=== PATIENT | male | born 1945 | race Caucasian/White ===

== ENCOUNTER 2021-10-08 12:49 | Inpatient (IN) | payer MEDICARE, OTHER ==
[~2021-10-08] VITALS: Ht 167.6 cm; Wt 86.4 kg
[2021-10-08 14:00] LABS: BASO # 0.1 K/mm3 (0.0-0.2); BASO % 0.6 % (0.0-2.0); EOS # 0.2 K/mm3 (0.0-0.7); EOS % 2.6 % (0.0-4.0); GRAN # 6.1 K/mm3 (1.4-6.5); GRAN % 72.1 % (42.2-75.2); HEMATOCRIT 42.9 % (42.0-52.0); LYMPH # 1.3 K/mm3 (1.2-3.4); LYMPH % 15.8 % (20.0-51.0); MEAN CELL VOLUME 92 fl (80.0-100.0); MEAN CORPUSCULAR HEMOGLOBIN 32 pg (27-31); MEAN CORPUSCULAR HGB CONC 35 g/dl (33.0-37.0); MONO # 0.7 K/mm3 (0.1-0.6); MONO % 8.5 % (1.7-9.3); PLATELET COUNT 187 K/mm3 (130-400); RED BLOOD COUNT 4.66 M/mm3 (4.20-5.60); REDCELL DISTRIBUTION WIDTH-CV 12.4 % (11.5-14.5)
[2021-10-08 14:27] LABS: ALANINE AMINOTRANSFERASE 41 U/L (0-55); ALBUMIN 3.5 gm/dL (3.4-4.8); ALKALINE PHOSPHATASE 52 U/L (40-150); ANION GAP 11 mmol/L (7-16); AST,SGOT 27 U/L (5-34); BILIRUBIN,TOTAL 0.6 mg/dL (0.2-1.2); BLOOD UREA NITROGEN 25 mg/dL (8-26); CALCIUM 9.2 mg/dL (8.4-10.2); CARBON DIOXIDE 25 mmol/L (23-31); CHLORIDE 104 mmol/L (98-107); CREATININE, serum 0.88 mg/dL (0.72-1.25); GLUCOSE 202 mg/dL (70-99); POTASSIUM 4.3 mmol/L (3.5-4.5); SODIUM 140 mmol/L (136-145); TOTAL PROTEIN 6.9 gm/dL (6.2-8.1)
[2021-10-08 14:32] LABS: ALCOHOL(ethanol),MEDICAL < 10 mg/dL (0-10)
[2021-10-08 14:37] LABS: TROPONIN-I < 0.010 ng/mL (0.00-0.033)
[2021-10-08 16:20] LABS: COLLECTION METHOD CLEAN CATCH
[2021-10-08 16:30] LABS: MUCOUS Present (NOT PRESENT); PH 5 (5-8); SQUAMOUS EPITHELIAL None Seen /hpf (0-10); URINE APPEARANCE Clear (CLEAR/HAZY); URINE BACTERIA None Seen /hpf (NONE SEEN); URINE BILIRUBIN Negative (NEGATIVE); URINE BLOOD Negative (NEGATIVE); URINE COLOR Yellow (YELLOW); URINE GLUCOSE 1+ (NEGATIVE); URINE KETONE Negative (NEGATIVE); URINE LEUKOCYTE ESTERASE Negative (NEGATIVE); URINE NITRATE Negative (NEGATIVE); URINE PROTEIN(semi-quant) Negative (NEGATIVE); URINE RBC 0-2 /hpf (0-2); URINE UROBILINOGEN Negative (NEGATIVE)
[2021-10-08] MEDS ORDERED: ACIDOPHILIS (16:37)
[2021-10-08] MEDS ORDERED: BALANCE B-501 TA1 PO (16:38)
[2021-10-08] MEDS ORDERED: DIGEST ADV INT1 EACH (16:38)
[2021-10-08] MEDS ORDERED: ASHWAGANDHA500 MG PO (16:38)
[2021-10-08] MEDS ORDERED: NATURE'S BLEND600 M2 PO (16:39)
[2021-10-08] MEDS ORDERED: [UNRECOGNIZED DRUG - OTHER] (16:40)
[2021-10-08] MEDS ORDERED: NATURE'S BLEND500 M1 PO (16:40)
[2021-10-08] MEDS ORDERED: L-THEANINE200 MG PO (16:41)
[2021-10-08] MEDS ORDERED: MELATONIN5 M1 SL (16:41)
[2021-10-08] MEDS ORDERED: LIPID EMULSION 20% (16:41)
[2021-10-08] MEDS ORDERED: COREG 25MG25 MG/TAB PO (16:42)
[2021-10-08] MEDS ORDERED: ZESTRIL40 MG PO (16:42)
[2021-10-08] MEDS ORDERED: NORVASC 5MG5 MG/TAB PO (16:43)
[2021-10-08] MEDS ORDERED: MEVACOR 20M20 MG/TAB PO (16:44)
[2021-10-08] MEDS ORDERED: THE MEDICINE S200 M2 PO (16:44)
[2021-10-08] MEDS ORDERED: HCTZ 25MG TAB25 MG PO (16:44)
[2021-10-08] MEDS ORDERED: VITAMIN C500 MG PO (16:45)
[2021-10-08] MEDS ORDERED: VITAMIN B-6100 MG (16:45)
[2021-10-08] MEDS ORDERED: CURCUMIN95% (16:46)
[2021-10-08] MEDS ORDERED: SELENIUM200 MC5 (16:46)
[2021-10-08] MEDS ORDERED: FISH OIL 1000MG1 CAP PO (16:49)
[2021-10-08] MEDS ORDERED: PHARMASSURE ZIN50 MG PO (16:50)
[2021-10-08] MEDS ORDERED: VITAMIN D31 MILLION (16:50)
[2021-10-08] MEDS ORDERED: NATURAL E400 IU PO (16:50)
[2021-10-08] MEDS ORDERED: GINGER ROOT EX250 MG PO (16:51)
[2021-10-08] MEDS ORDERED: GINKGO60 MG PO (16:51)
[2021-10-08] MEDS ORDERED: GREEN TEA EXTR250 MG PO (16:51)
[2021-10-08] MEDS ORDERED: GNC L-ARGININE500 MG PO (16:52)
[2021-10-08 20:29] VITALS: BP 158/66; PULSE 59
[2021-10-08] MEDS ORDERED: [UNRECOGNIZED DRUG - OTHER] (20:59)
[2021-10-08] MEDS ORDERED: GARLIC100 MG PO (21:00)
[2021-10-08] MEDS ORDERED: LUTEIN6 MG PO (21:02)
[2021-10-08] MEDS ORDERED: [UNRECOGNIZED DRUG - OTHER] (21:04)
[2021-10-08] MEDS ORDERED: ASTRAGALUS ROOT (21:05)
[2021-10-08] MEDS ORDERED: VITAMIN B COMPLEX (21:06)
[2021-10-08] MEDS ORDERED: Elderberry (21:08)
[2021-10-08] MEDS ORDERED: CITRULLINE (21:09)
[2021-10-08] MEDS ORDERED: Magnesium Glycinate (21:09)
[2021-10-08] MEDS ORDERED: GLUCOSAMINE MSM1 TAB PO (21:11)
--- NOTE | 2021-10-08 23:02 | NUR ---
ADMIT TO FLOOR W ACCOMPANY. PT INITALLY IS UPSET STATES HE HAD NOT ATE ALL DAY AND WAS UPSET HAD TO LEAVE. - INFORMED SHE WOULD BE ALLOWED TO STAY FOR ASSESS TO HELP ME OBTAIN HX, MEDS. SIMPLE SWALLOW BEDSIDE- DID OKAY WITH THICK AND THIN LIQ. ORDERS PERUVIAN AND ASST WITH INFORMATION. MED LIST REC COMPLETE. DR NIETO HAD SEEN PT IN ER AND WROTE ORDERS. NEURO INTACT.ORTHO STAT DONE AND WNL. PT REFUSED TO CHANGE INTO YELLOW GOWN DID PUT ON SKID SOCKS. BED ALARM ON. POC DISCUSSED. NUMBER LEFT.
[2021-10-09 00:53] VITALS: BP 139/61; PULSE 81; TEMP 98.2
[2021-10-09 05:01] VITALS: BP 159/87; PULSE 85; TEMP 98.6
--- NOTE | 2021-10-09 05:29 | NUR ---
RESTED THROUGH THE NIGHT WITHOUT INCIDENT. NEEDS ARE MET.
[2021-10-09 06:35] LABS: BASO # 0.1 K/mm3 (0.0-0.2); BASO % 0.9 % (0.0-2.0); EOS # 0.3 K/mm3 (0.0-0.7); EOS % 3.5 % (0.0-4.0); GRAN # 4.8 K/mm3 (1.4-6.5); GRAN % 64.7 % (42.2-75.2); HEMATOCRIT 44.6 % (42.0-52.0); HEMOGLOBIN 15.7 g/dl (13.5-18.0); LYMPH # 1.6 K/mm3 (1.2-3.4); MEAN CELL VOLUME 92 fl (80.0-100.0); MEAN CORPUSCULAR HEMOGLOBIN 33 pg (27-31); MEAN CORPUSCULAR HGB CONC 35 g/dl (33.0-37.0); MEAN PLATELET VOLUME 11.1 fl (7.4-10.4); MONO # 0.6 K/mm3 (0.1-0.6); MONO % 8.5 % (1.7-9.3); PLATELET COUNT 167 K/mm3 (130-400); RED BLOOD COUNT 4.83 M/mm3 (4.20-5.60); REDCELL DISTRIBUTION WIDTH-CV 12.2 % (11.5-14.5)
[2021-10-09 06:53] LABS: CALCIUM 8.8 mg/dL (8.4-10.2); CHOLESTEROL RISK RATIO 6.2; CREATININE, serum 0.79 mg/dL (0.72-1.25); MAGNESIUM 2.1 mg/dL (1.6-2.6); POTASSIUM 3.8 mmol/L (3.5-4.5)
[2021-10-09 07:04] VITALS: BP 140/72; PULSE 67; TEMP 98.6
[2021-10-09 07:15] LABS: TSH w REFLEX 2.028 uIU/mL (0.350-4.940)
--- NOTE | 2021-10-09 10:15 | NUR ---
Patient went down for MRI. Once back upstairs, this RN assisted the gameroom technician with a bubble study, patient tolerated this well. Patient A&Ox4 and appears to be doing well. Patient is very pleasant. Patient currently denying any concerns. Call light is w/in reach and has been encouraged to call if any needs arise.
[2021-10-09 10:55] VITALS: BP 150/66; PULSE 63; TEMP 98.3
[2021-10-09 10:58] VITALS: BP 150/66; PULSE 63
[2021-10-09] MEDS ORDERED: AMOXICILLIN 8751 TAB PO (11:06)
--- NOTE | 2021-10-09 11:29 | NUR ---
Dena: Scientologist Situation: Uptwist Spinner went to room on rounds Background: PT seems content. Was alert and we enjoyed conversation on a wide range of topics. Assessment: PT seems hopeful Recommendation: Uptwist Spinner will follow up as needed
--- NOTE | 2021-10-09 12:44 | NUR ---
Funeral Service Apprentice met with patient to discuss discharge planning. Patient lives outside of [place] with his , Tika (ph#[phone]) and sees Dr. Little at [facility] in [place] for primary care. Patient obtains medications from [facility] in with no difficulties and does not use any DME. Patient reports independence with ADLS and plans to return home at time of discharge. Patient does not have Advance Directives but reports he is working on this at home. Patient worked with PT and recommendation is for home. Discharge Plan: Home
[2021-10-09] MEDS ORDERED: LIPITOR 80MG80 MG PO (14:42)
[2021-10-09] MEDS ORDERED: LOFIBRA160 MG PO (14:42)
[2021-10-09] MEDS ORDERED: GLUCOPHAGE500 MG/TAB PO (14:43)
[2021-10-09] MEDS ORDERED: ASPIRIN 81M81 MG/TA2 PO (15:22)
--- NOTE | 2021-10-09 16:30 | NUR ---
Patient discharged home. All discharge instructions/education discussed w/ patient and his . Patient and verbalized understanding. Patient signed appropriate paperwork. IV and telemetry removed by this RN.
[2021-10-09 22:18] LABS: LYME DISEASE ANTIBODIES Negative (Negative)
[2021-10-11 13:55] LABS: CADMIUM BLOOD <0.2 ng/mL (<5.0); LEAD,SERUM** 1.5 mcg/dL (<5.0); MERCURY,SERUM <1 ng/mL (<10)
[2021-10-12 09:56] LABS: A/G RATIO (PEP) 1.12 (())
== END 2021-10-09 16:30 | disposition home or self-care (01) | DRG 93 ==
LOC: COL.ER 12:49 → MEDICAL 16:41
PROVIDERS: Physician Assistant; Psychiatry & Neurology Neurology; ADMIT Family Medicine
DX: R26.81 Unsteadiness on feet (principal); R47.1 Dysarthria and anarthria; R29.6 Repeated falls; I10 Essential (primary) hypertension; I35.0 Nonrheumatic aortic (valve) stenosis; S01.81XA Laceration without foreign body of other part of head, initial encounter; I65.21 Occlusion and stenosis of right carotid artery; G47.33 Obstructive sleep apnea (adult) (pediatric); R01.1 Cardiac murmur, unspecified; E11.9 Type 2 diabetes mellitus without complications; J34.1 Cyst and mucocele of nose and nasal sinus; E78.2 Mixed hyperlipidemia; J33.8 Other polyp of sinus; G31.9 Degenerative disease of nervous system, unspecified; Z86.73 Personal history of transient ischemic attack (TIA), and cerebral infarction without residual deficits; Z87.442 Personal history of urinary calculi
CPT/HCPCS: 99223-AI; 99233-AI; A9575; J1650; Q9967